=== PATIENT | female | born 1965 | race Caucasian/White ===

== ENCOUNTER 2017-02-01 04:02 | Inpatient (IN) | payer OTHER ==
--- NOTE | ~2017-02-01 | HP ---
History And Physical [facility] [id number] [place]. [address] NAME: ARI ACUNA : 63 STATUS : DIS IN PAT#: [id number] AGE: 51 ADM/REG DATE : 02/01/17 MR#: [id number] REPORT SERV DATE: 02/18/17 DICTATED BY: EZ COBOS DATE: 02/01/17 REPORT STATUS : Draft TRANSCRIBED BY: MODL DATE: 02/01/17 DATE OF ADMISSION: 02/01/2017 CHIEF COMPLAINT: Blood sugar unreadable, hyperglycemia. HISTORY OF PRESENT ILLNESS: This is a 45-year-old, obese, insulin-dependent diabetic with hypothyroidism and hyperglycemia who presents to the Emergency Room at [facility] with the above-mentioned complaint. History is obtained from the patient, her daughter, and a niece who are at bedside and reviewing data available on the [employer] system. According to available data, Mrs. Price has had a urinary tract infection about two weeks ago, which was successfully treated. Yesterday in the morning, they found her blood sugars were 400 and above, and during the course of the day, her blood sugars climbed up to the point the meter would not even read. No matter what they did, the sugar would not come down. She has an insulin pump, which they had checked, changed the lines and made sure it was working. However, blood sugars continued to rise, and finally they decided to bring her to the emergency room. Their physician had locked out the basal rate on her pump, and they were advised never to give a bolus. In the emergency room, she had a blood sugar of 652 and Hospitalist Service was asked to admit her for further evaluation and treatment. At the time of my evaluation, she denied any chest pain, palpitations, or orthopnea. She had no cough, hemoptysis, night sweats, or weight loss. She has not had any recent falls or loss of consciousness. No history of recent fevers, chills, nausea, vomiting, or diarrhea. No history of recent hematemesis, hematochezia, hematuria, or dysuria. No other history of recent travel or exposures other than those mentioned above. PAST MEDICAL HISTORY: Significant for poorly controlled diabetes mellitus with known insulin resistance on U-500 via insulin pump. She has a history of gastroparesis and neuropathy secondary to her diabetes; obesity; obstructive sleep apnea, on CPAP therapy; hypothyroidism; fibromyalgia; major depressive disorder and anxiety disorder. She has history of diverticulitis, atrial fibrillation with CHADS of 1, not on Coumadin; history of syncope with multiple admissions and workups in the past. She has a fatty liver, urinary tract infections as well. She has a PEG tube placement as well. SOCIAL HISTORY: She does not smoke, drink, or use recreational drugs. FAMILY HISTORY: Noncontributory. MEDICATIONS: At home were reviewed by me in the chart today and reordered by me. REVIEW OF SYSTEMS: As in history of present illness. All other systems were reviewed in detail and are quite unremarkable. History And Physical [address] [address] NAME: ARI ACUNA : 63 STATUS : DIS IN PAT#: [id number] AGE: 51 ADM/REG DATE : 02/01/17 MR#: [id number] REPORT SERV DATE: 02/18/17 DICTATED BY: EZ COBOS DATE: 02/01/17 REPORT STATUS : Draft TRANSCRIBED BY: ANASTASIYA DATE: 02/01/17 PHYSICAL EXAMINATION: GENERAL: This is a pleasant 45-year-old, morbidly obese female who is alert, awake, and oriented to time, place, and person. HEENT: Her head is atraumatic, normocephalic. Pupils are equal, reacting to light and accommodating. External ocular muscles are intact. Membranes are moist and pink. Sclerae are nonicteric. NECK: Supple with no jugular venous distention, lymphadenopathy, or thyromegaly. LUNGS: Clear to auscultation with no wheezes, rubs, or crackles. HEART: Sounds were regular with no murmurs, rubs, or gallops. ABDOMEN: Soft, nontender. Bowel sounds are present. EXTREMITIES: No cyanosis, clubbing, or edema. NEUROLOGIC: Grossly intact. No focal sensory or motor deficits. Higher functions appeared intact. Gait was not examined at this time. VITAL SIGNS: Her vital signs today showed a temperature of 97.8, pulse 78, respirations 17 a minute, blood pressure was 126/57, oxygen saturations were 99% breathing 2 L of oxygen via nasal cannula. LABORATORY DATA: Reviewed on the [employer] system showed a pH of 7.37, pCO2 of 41, pO2 of 78, and bicarb 23.0. This was on room air. CMP showed a sodium of 134, potassium 4.8, chloride 97, CO2 of 26, BUN was 32 with a creatinine of 1.35, which is slightly up from her baseline. Blood glucose upon arrival here was 652. Troponin was 202 today. Her lactate was 1.6 today, and CBC showed a white blood cell count of 7900, hemoglobin was 11.6, hematocrit 35.9, and platelet count was 195,000. Urinalysis showed no leukocyte esterase, nitrite was positive; there were 6 wbc's. Films of the chest x-ray were reviewed by me on the PACS today and interpreted by me. Per my interpretation, there is no significant change from her prior films. A 12-lead EKG done in the emergency room was reviewed and interpreted by me. There is normal sinus rhythm with a rate of [address]-T changes. IMPRESSION: 1. Severe hyperglycemia. 2. Poorly controlled insulin dependent diabetes mellitus. 3. Hypothyroidism. 4. Morbid obesity. 5. Obstructive sleep apnea, on CPAP therapy. 6. Gastroparesis and neuropathy. 7. Major depressive disorder and anxiety disorder. 8. History of medication noncompliance. PLAN: We will admit Mrs. Price to the Hospitalist Service to a telemetry bed for a 24-hour observation period. We will go ahead and stop her insulin pump and exchange engineer to insulin infusion per protocol. We will also bolus her with normal saline here, check her serum acetone and urine ketones as well. We will also check her A1c and her thyroid function. We will go ahead and check her chemistry, CBC, and electrolytes in the morning and replete electrolytes as needed. She will be on low molecular weight heparin for DVT prophylaxis History And Physical [address] [address] NAME: ARI ACUNA : 63 STATUS : DIS IN [facility]#: [id number] AGE: 51 ADM/REG DATE : 02/01/17 MR#: [id number] REPORT SERV DATE: 02/18/17 DICTATED BY: EZ COBOS DATE: 02/01/17 REPORT STATUS : Draft TRANSCRIBED BY: MODL DATE: 02/01/17 while here as well. We will also get nutrition consult to re-educate her on the use of her pump as well. I have discussed the above plans with the patient. Her questions were answered and she is agreeable to the above recommendations. Hospitalist Service will be following her during her stay here. LEENA Ez Cobos M.D. / [id number]
--- NOTE | ~2017-02-01 | DS ---
Discharge Summary [facility] [address] [place]. [address] NAME: ARI ACUNA : 63 STATUS : DIS IN PAT#: [id number] AGE: 51 ADM/REG DATE : 02/01/17 MR#: [id number] REPORT SERV DATE: 02/07/17 DICTATED BY: LILIA OSPINA DATE: 02/06/17 REPORT STATUS : Draft TRANSCRIBED BY: ANASTASIYA DATE: 02/06/17 ADMISSION DATE: 02/01/2017 DISCHARGE DATE: 02/06/2017 DISCHARGE DIAGNOSES: 1. Diabetes mellitus, poorly controlled, insulin dependent. 2. Gastroparesis. 3. Weakness. IMAGING: Chest x-ray, 02/01/2017. Impression: Negative AP portable chest. HOSPITAL COURSE: Please refer to history and physical dictated on 02/01/2017 for complete admission details. This patient is a 51-year-old female, who presented to [facility]'s Emergency Room with a blood glucose of 652. The patient is a known diabetic. The patient's family stated upon admission that the patient's blood glucose had been elevated for approximately 48 hours. She is a type 2 diabetic on an insulin pump. She is known insulin resistant. The patient stated at the time of admission that she was unable to control her blood sugars. The patient was noting blood sugars greater than 600. The patient was then admitted to the hospital. 1. Diabetes mellitus type 2, poorly controlled. The patient was initially taken off her insulin pump. Diabetes education was obtained. The patient was thoroughly educated as well as daughter. Questions were answered. Insulin pump was re-initiated. Blood sugar has been monitored during her stay as well as her diet. The patient did state understanding as well as daughter. We will have the patient follow up with her primary care. 2. Gastroparesis. The patient has had a PEG tube placed approximately 5 years prior to this admission. Tube feedings have continued, she has tolerated without difficulty. 3. Weakness. The patient was evaluated by Physical Therapy due to complaints of weakness. She did state that she has been wheelchair bound for greater than 12 months. She was able to work with Physical Therapy, but she did refuse nursing home versus rehab, requesting to go home. Resume choices as previously ordered by her primary care. The patient has been advised to follow up with her primary care though in five to seven days. The patient is being discharged home in hemodynamically stable condition. She will follow up with her primary care in five to seven days. She will continue her insulin pump and record readings for her primary care. DISCHARGE MEDICATIONS: 1. Aspirin 325 mg one per PEG. 2. Ibuprofen 800 mg one per PEG three times daily. 3. Gabapentin 600 mg per PEG three times daily. 4. Lopid 600 mg one per PEG twice daily. 5. Humulin R 500 per insulin pump. Discharge Summary [place] [address] [place] [address] NAME: ARI ACUNA : 63 STATUS : DIS IN PAT#: [id number] AGE: 51 ADM/REG DATE : 02/01/17 MR#: [id number] REPORT SERV DATE: 02/07/17 DICTATED BY: LILIA OSPINA DATE: 02/06/17 REPORT STATUS : Draft TRANSCRIBED BY: ANASTASIYA DATE: 02/06/17 6. Lamictal 200 mg per PEG daily. 7. Synthroid 300 mcg per PEG breakfast. 8. Cytomel 25 mcg per PEG at lunch. 9. Trileptal 300 mg per PEG twice daily. 10.Zoloft 100 mg, 150 mg per PEG daily. 11.Zocor 20 mg per PEG daily. 12.Topamax 100 mg per PEG daily. 13.Effexor 25 mg, 75 mg per PEG twice daily. 14.Oxycodone 5 mg per PEG three times daily p.r.n. for pain. 15.Proventil inhaler up to four times daily p.r.n. for shortness of breath. 16.Flexeril 5 mg, 10 mg per PEG every 8 hours p.r.n. for muscle spasms. Hold for sedation. 17.HCTZ 25 mg per PEG daily. 18.Proventil inhaler two puffs inhale up to four times daily for shortness of breath. 19.QVAR 40 mcg two puffs inhale twice daily. 20.Pyridium 200 mg per PEG p.r.n. three times daily. This discharge took less than 30 minutes. ISMAEL/ANASTASIYA Lilia Ospina NP / [id number] CC: MD David Penn M.D.
[2017-02-01 03:30] LABS: INSTRUMENT SERIAL # 8087
[2017-02-01 03:31] LABS: ALLENS TEST Pos; BE (BASE EXCESS) -2.2 MEQ/L (0 +/- 2.5); CARBOXYHEMOGLOBIN 1.6 % (0-3); DEVICE ra; HEMOBLOGIN CONTENT 10.7 G/DL (12-16); METHEMOGLOBIN 0.2 % (0-3); O2 CONTENT 14.1 VOL% (18-24); OPERATOR ID 334499; PCO2 (CO2 TENSION) 41 MMHG (35-45); PO2 (O2 TENSION) 78 MMHG (79-93); SAMPLE Arterial; pH 7.37 (7.37-7.43)
[2017-02-01 03:37] LABS: BASOPHILS 0.6 %; BASOPHILS ABSOLUTE 0.05 10/3/uL (0.0-0.16); EOSINOPHILS 6.9 %; EOSINOPHILS ABSOLUTE 0.55 10/3/uL (0.0-0.53); HEMATOCRIT 35.9 % (36.0-48.0); HEMOGLOBIN 11.6 g/dL (12.0-16.0); IMMATURE GRANULOCYTES 0.8 %; IMMATURE GRANULOCYTES ABSOLUTE 0.06 10/3/uL (0.0-0.11); LYMPHOCYTES 27.6 %; LYMPHOCYTES ABSOLUTE 2.19 10/3/uL (0.67-4.30); MEAN CORPUS HGB CONC 32.3 g/dL (32.0-36.0); MEAN CORPUSCULAR HEMOGLOB 28.4 pg (26.0-34.0); MEAN CORPUSCULAR VOLUME 87.8 fL (80-100); MEAN PLATELET VOLUME 9.8 fL (9.2-13.0); MONOCYTES 7.2 %; MONOCYTES ABSOLUTE 0.57 10/3/uL (0.21-1.20); NEUTROPHILS 56.9 %; NEUTROPHILS ABSOLUTE 4.51 10/3/uL (2.02-8.40); PLATELET COUNT 195 10/3/uL (150-400); RBC DISTRIBUTION WIDTH 16.7 % (12.0-16.0); RED CELL COUNT 4.09 10/6/uL (4.0-5.6); WHITE BLOOD CELLS 7.9 10/3/uL (4.5-10.5)
[2017-02-01 03:41] LABS: MANUAL DIFF NO %
[2017-02-01 03:54] LABS: A/G RATIO 0.9 (0.7-1.9); ALBUMIN 3.6 G/DL (3.5-5.0); BUN (BLOOD UREA NITROGEN) 32 MG/DL (6-23); CALCIUM, SERUM 8.5 MG/DL (8.5-10.4); CHLORIDE, SERUM 97 MMOL/L (96-112); CO2 (CARBON DIOXIDE) 26 MMOL/L (24-34); CREATININE 1.35 MG/DL (0.55-1.02); GFR AFRICAN AMERICAN 52 ML/MIN (>=60); GFR NON AFRICAN AMERICAN 45 ML/MIN (>=60); GLOBULIN 3.8 G/DL (2.5-4.1); POTASSIUM, SERUM 4.8 MMOL/L (3.5-5.3); SGOT(AST) 66 U/L (5-40); SGPT(ALT) 87 U/L (5-65); SODIUM, SERUM 134 MMOL/L (135-148); TOTAL PROTEIN 7.4 G/DL (6.0-8.5)
[2017-02-01 03:56] LABS: ALKALINE PHOSPHATASE 293 U/L (45-117); GLUCOSE, SERUM 652 MG/DL (60-99); TOTAL BILIRUBIN 1.2 MG/DL (0-1.2)
[~2017-02-01 04:02] MED LIST: ACETSUP650 PR; ACETUDL PO; ALEVE220 MG PEG; ARMOUR THYRO30 MG PEG; ARMOUR THYRO30 MG PO; ASA5GR PEG; ASA5GR PO; ASAB PO; ASABAYER PEG; ASABAYER PO; AT25 PEG; AT25 PO; ATARAX50B PO; ATV1 PO; BEN25 PEG; BEN25 PO; CEFTRIAXONE PO; CIP5 PEG; CIPRO PO; CLARIT10 PO; CYTO25 PEG; DURICEF PO; EDLUAR5 MG SL; EFFEX25 PEG; EFFEXXR37 PEG; EFFEXXR75 PEG; FLEX PEG; FLEX PO; FLEXERIL5 MG PEG; FLUCON150 PEG; Flexeril PO; GLUCERNA; HCTZ12.5 PO; HCTZ25B PEG; HCTZ25B PO; HUMULIN-R CONCEN3 ML SC; HUMULIN500CONC; HYDROCHLOROT12.5 MG PO; HYDROCHLOROT25 MG PEG; HYDROCHLOROT25 MG PO; HYDROCODONE; IBU800 PEG; IBU800 PO; IMITREX100 MG PEG; IMITREX100 MG PO; IMITREX50 PO; INSNOVN SC; INSNOVR SC; K500 PO; KCL20UDL PO; LAMICTAL25 PEG; LANTUS FOR SC; LANTUS INSULIN; LANTUS SC; LEVOTHYROXIN175 MCG PEG; LIPITOR20 PEG; LOPID6 PEG; LOPID6 PO; LORT7 PEG; LORT7 PO; MAGOX4 PO; MARINOL10 MG PO; MAXALT10 MG PO; MIRALAXPKT PO; NATURA2 OP; NATURA2 OPH; NEUR300 PEG; NEUR300 PO; NEUR600 PEG; NEUR600 PO; NEXIUM40 MG PEG; NEXIUM40 MG PO; NEXIUM40 PO; NORCO1 TA2 PEG; NORCO1 TA2 PO; NOVLOGPUMP SC; NOVOLOG INSULIN; NOVOLOG SC; NOVOPEN SC; OXYCOD PEG; PR25 PEG; PR25 PO; PRIN5 PEG; PROTONIX PEG; PROVENTSOL INH; PROVHFA INH; QVAR40 MC1 INH; REG PO; REGL PO; RELPAX PO; RELPAX40 MG PEG; RELPAX40 MG PO; REMERON30 MG PEG; SLEEP MED; SYN.05 PO; SYN075 PO; SYN125 PEG; SYN125 PO; SYN88 PO; SYNTHROID175 MCG PEG; SYNTHROID200 MCG PEG; SYNTHROID300 MCG PEG; T PEG; TRAMADOL PO; TRAZ100 PEG; TRAZ50 PEG; TRAZ50 PO; ULTRAM50 PEG; ULTRAM50 PO; VIB100 PO; VIST25 PO; VITAMIN D31000 UNIT PO; X5 PEG; X5 PO; ZETIA PO; ZOL100 PEG; ZOL100 PO; ZOL50 PO; [UNRECOGNIZED DRUG - OTHER]; [UNRECOGNIZED DRUG - OTHER]; [UNRECOGNIZED DRUG - REMARK]; [UNRECOGNIZED DRUG - REMARK]
[2017-02-01 04:39] LABS: ASCORBIC ACID (UR NOT ORDER) NEG (NEG); BILIRUBIN, URINE NEGATIVE (NEG); ER URINALYSIS TAT 0 Hrs 08 Mins; KETONE, URINE NEGATIVE (NEG); LEUKOCYTE ESTERASE(NOT OR NEG (NEG); NITRITE (URINE) POS (NEG); WBC (NOT ORDERED) (RFLEX) 6 (0-5)
[2017-02-01] MEDS ORDERED: IBU800 PO (04:47)
[2017-02-01] MEDS ORDERED: TOPAMAX100 PEG (04:48)
[2017-02-01] MEDS ORDERED: TRILEP300 PEG (04:49)
[2017-02-01] MEDS ORDERED: PYR200 PEG (04:50)
[2017-02-01] MEDS ORDERED: ZOCOR20 PEG (04:52)
[2017-02-01] MEDS ORDERED: NAP500 PEG (04:57)
[2017-02-01] MEDS ORDERED: ZOL100 PEG (04:58)
[2017-02-01] MEDS ORDERED: LAMICTAL200 MG PEG (04:59)
[2017-02-01 10:36] LABS: ACETONE NEG
[2017-02-02 04:04] LABS: BASOPHILS 0.4 %; BASOPHILS ABSOLUTE 0.03 10/3/uL (0.0-0.16); EOSINOPHILS 7.4 %; EOSINOPHILS ABSOLUTE 0.51 10/3/uL (0.0-0.53); HEMATOCRIT 30.5 % (36.0-48.0); HEMOGLOBIN 9.8 g/dL (12.0-16.0); IMMATURE GRANULOCYTES 0.7 %; IMMATURE GRANULOCYTES ABSOLUTE 0.05 10/3/uL (0.0-0.11); LYMPHOCYTES ABSOLUTE 2.34 10/3/uL (0.67-4.30); MANUAL DIFF NO %; MEAN CORPUS HGB CONC 32.1 g/dL (32.0-36.0); MEAN CORPUSCULAR HEMOGLOB 28.2 pg (26.0-34.0); MEAN CORPUSCULAR VOLUME 87.6 fL (80-100); MEAN PLATELET VOLUME 9.5 fL (9.2-13.0); MONOCYTES 7.7 %; MONOCYTES ABSOLUTE 0.53 10/3/uL (0.21-1.20); NEUTROPHILS 49.8 %; NEUTROPHILS ABSOLUTE 3.43 10/3/uL (2.02-8.40); PLATELET COUNT 163 10/3/uL (150-400); RBC DISTRIBUTION WIDTH 16.5 % (12.0-16.0); RED CELL COUNT 3.48 10/6/uL (4.0-5.6); WHITE BLOOD CELLS 6.9 10/3/uL (4.5-10.5)
[2017-02-02 04:17] LABS: CALCIUM, SERUM 8.1 MG/DL (8.5-10.4); CHLORIDE, SERUM 109 MMOL/L (96-112); CO2 (CARBON DIOXIDE) 24 MMOL/L (24-34); CREATININE 0.99 MG/DL (0.55-1.02); GFR AFRICAN AMERICAN 76 ML/MIN (>=60); GFR NON AFRICAN AMERICAN 66 ML/MIN (>=60)
[2017-02-02 04:18] LABS: BUN (BLOOD UREA NITROGEN) 17 MG/DL (6-23); GLUCOSE, SERUM 338 MG/DL (60-99); PHOSPHORUS, SERUM 2.4 MG/DL (2.5-4.5); POTASSIUM, SERUM 3.8 MMOL/L (3.5-5.3); SODIUM, SERUM 142 MMOL/L (135-148)
[2017-02-03 06:22] LABS: CALCIUM, SERUM 7.8 MG/DL (8.5-10.4); CHLORIDE, SERUM 112 MMOL/L (96-112); CO2 (CARBON DIOXIDE) 23 MMOL/L (24-34); CREATININE 0.88 MG/DL (0.55-1.02); GFR AFRICAN AMERICAN 88 ML/MIN (>=60); GFR NON AFRICAN AMERICAN 76 ML/MIN (>=60); POTASSIUM, SERUM 4.4 MMOL/L (3.5-5.3); SODIUM, SERUM 143 MMOL/L (135-148)
[2017-02-03 06:24] LABS: BUN (BLOOD UREA NITROGEN) 10 MG/DL (6-23); GLUCOSE, SERUM 191 MG/DL (60-99)
[2017-05-27] MEDS ORDERED: CYTO25 PEG (23:41)
[2017-05-27] MEDS ORDERED: LEVOTHYROXIN50 MCG PEG (23:41)
[2017-05-27] MEDS ORDERED: ZOL50 PO (23:41)
[2017-05-27] MEDS ORDERED: ASABAYER PEG (23:42)
[2017-05-27] MEDS ORDERED: TOPAMAX50 MG PEG (23:42)
[2017-05-27] MEDS ORDERED: REMERON30 MG PEG (23:42)
[2017-05-27] MEDS ORDERED: TRILEP300 PEG (23:43)
[2017-05-27] MEDS ORDERED: LAMICTAL200 MG PEG (23:43)
[2017-05-27] MEDS ORDERED: TRILEPTAL600 MG PO (23:43)
[2017-05-27] MEDS ORDERED: NEUR600 PO (23:43)
[2017-05-27] MEDS ORDERED: IBU800 PEG (23:44)
[2017-05-27] MEDS ORDERED: HUMULIN-R CONCEN3 ML SC (23:44)
[2017-05-27] MEDS ORDERED: ALBUTEROL0.083 % INH (23:45)
[2017-05-27] MEDS ORDERED: BREO ELLIPTA INH (23:45)
[2017-05-31] MEDS ORDERED: LAMICTAL10 PO (12:50)
[2017-05-31] MEDS ORDERED: TRILEP150 PO (12:54)
[2017-05-31] MEDS ORDERED: LEVEMIR SC (13:08)
[2017-07-24] MEDS ORDERED: METHOC500B PO (11:53)
[2017-07-24] MEDS ORDERED: PCET PO (11:54)
[2017-07-24] MEDS ORDERED: TOPAMAX50 MG PO (11:55)
[2017-07-24] MEDS ORDERED: EPIPEN0.3 IM (11:56)
[2017-07-24] MEDS ORDERED: BREO ELLIPTA 21 EACH INH (11:56)
[2017-07-24] MEDS ORDERED: NASACORTAQ NAS (11:57)
[2017-07-24] MEDS ORDERED: ALLEGRA180 PO ×2 (11:57→11:58)
[2017-07-24] MEDS ORDERED: PROVHFA INH (11:58)
[2017-07-24] MEDS ORDERED: HUMULIN500CONC (11:58)
[2017-07-24] MEDS ORDERED: ALBUTEROL0.083 % INH (11:59)
[2017-07-24] MEDS ORDERED: NEUR300 PO (11:59)
[2017-07-24] MEDS ORDERED: NOVOLOG SC (11:59)
[2017-07-24] MEDS ORDERED: IMITREX100 MG PO (12:00)
[2017-07-24] MEDS ORDERED: EFFEX25 PO (12:00)
[2017-07-24] MEDS ORDERED: SPIRIVA (12:01)
[2017-07-24] MEDS ORDERED: REMERON30 MG PO (12:01)
[2017-07-24] MEDS ORDERED: TRILEP300 PO (12:02)
[2017-07-24] MEDS ORDERED: [UNRECOGNIZED DRUG - CODE] (12:03)
[2017-07-24] MEDS ORDERED: SINGULAIR1 PO (12:04)
[2017-07-24] MEDS ORDERED: LIOR10 PO (12:05)
[2017-07-24] MEDS ORDERED: NORCO1 TA1 PO (12:06)
[2017-07-24] MEDS ORDERED: NAP500 PO (12:06)
[2017-07-24] MEDS ORDERED: ZOL100 PO (12:08)
[2017-07-25] MEDS ORDERED: NAP500 PO (13:27)
[2017-07-25] MEDS ORDERED: HCTZ25B PO (13:28)
[2017-07-25] MEDS ORDERED: NEUR300 PO (13:30)
[2017-07-25] MEDS ORDERED: ATARAX50B PO ×2 (13:36→13:37)
[2017-07-25] MEDS ORDERED: LAMICTAL200 MG PO (13:39)
[2017-07-25] MEDS ORDERED: TRILEP300 PO ×2 (13:39→13:40)
[2017-07-25] MEDS ORDERED: SPIRIVA RESPIMAT INH (13:41)
[2017-07-25] MEDS ORDERED: EFFEXXR75 PO (13:42)
[2017-07-27] MEDS ORDERED: ENULOSE PO (12:58)
[2017-07-27] MEDS ORDERED: LAMICTAL10 PO (13:38)
[2017-07-27] MEDS ORDERED: TRILEP300 PO (13:39)
[2017-07-27] MEDS ORDERED: PR25 PEG (13:41)
[2017-07-27] MEDS ORDERED: SENTAB PEG (13:43)
[2017-07-27] MEDS ORDERED: TOPAMAX50 MG PO (13:49)
[2017-07-27] MEDS ORDERED: CONSTULOSE PO (13:56)
== END 2017-02-06 17:17 | disposition home or self-care (01) | DRG 74 ==
LOC: ER 04:02 → 4SO 06:06
PROVIDERS: Emergency Medicine; Internal Medicine; Internal Medicine Pulmonary Disease
DX: E11.43 Type 2 diabetes mellitus with diabetic autonomic (poly)neuropathy (principal); E11.65 Type 2 diabetes mellitus with hyperglycemia; K31.84 Gastroparesis; Z79.4 Long term (current) use of insulin; Z96.41 Presence of insulin pump (external) (internal); F32.9 Major depressive disorder, single episode, unspecified; F41.9 Anxiety disorder, unspecified; Z93.1 Gastrostomy status
CPT/HCPCS: 36600; 71010; 80048; 80053; 81001; 82009; 82805; 82962; 83036; 83605; 83690; 83735; 84100; 84443; 85025; 87040; 93005; 94640; 96374; 97162-GP; 97530-GP; 99285; A9270-GY; G8978-CL-GP; G8979-CL-GP; J2405

== ENCOUNTER 2017-03-06 02:44 | Emergency (ER) | payer OTHER ==
[~2017-03-06 02:44] MED LIST changes: +LAMICTAL200 MG PEG; +NAP500 PEG; +PYR200 PEG; +TOPAMAX100 PEG; +TRILEP300 PEG; +ZOCOR20 PEG
[2017-05-27] MEDS ORDERED: CYTO25 PEG (23:41)
[2017-05-27] MEDS ORDERED: ZOL50 PO (23:41)
[2017-05-27] MEDS ORDERED: LEVOTHYROXIN50 MCG PEG (23:41)
[2017-05-27] MEDS ORDERED: REMERON30 MG PEG (23:42)
[2017-05-27] MEDS ORDERED: TOPAMAX50 MG PEG (23:42)
[2017-05-27] MEDS ORDERED: ASABAYER PEG (23:42)
[2017-05-27] MEDS ORDERED: TRILEPTAL600 MG PO (23:43)
[2017-05-27] MEDS ORDERED: LAMICTAL200 MG PEG (23:43)
[2017-05-27] MEDS ORDERED: TRILEP300 PEG (23:43)
[2017-05-27] MEDS ORDERED: NEUR600 PO (23:43)
[2017-05-27] MEDS ORDERED: IBU800 PEG (23:44)
[2017-05-27] MEDS ORDERED: HUMULIN-R CONCEN3 ML SC (23:44)
[2017-05-27] MEDS ORDERED: BREO ELLIPTA INH (23:45)
[2017-05-27] MEDS ORDERED: ALBUTEROL0.083 % INH (23:45)
[2017-05-31] MEDS ORDERED: LAMICTAL10 PO (12:50)
[2017-05-31] MEDS ORDERED: TRILEP150 PO (12:54)
[2017-05-31] MEDS ORDERED: LEVEMIR SC (13:08)
[2017-07-24] MEDS ORDERED: METHOC500B PO (11:53)
[2017-07-24] MEDS ORDERED: PCET PO (11:54)
[2017-07-24] MEDS ORDERED: TOPAMAX50 MG PO (11:55)
[2017-07-24] MEDS ORDERED: BREO ELLIPTA 21 EACH INH (11:56)
[2017-07-24] MEDS ORDERED: EPIPEN0.3 IM (11:56)
[2017-07-24] MEDS ORDERED: ALLEGRA180 PO ×2 (11:57→11:58)
[2017-07-24] MEDS ORDERED: NASACORTAQ NAS (11:57)
[2017-07-24] MEDS ORDERED: HUMULIN500CONC (11:58)
[2017-07-24] MEDS ORDERED: PROVHFA INH (11:58)
[2017-07-24] MEDS ORDERED: NEUR300 PO (11:59)
[2017-07-24] MEDS ORDERED: ALBUTEROL0.083 % INH (11:59)
[2017-07-24] MEDS ORDERED: NOVOLOG SC (11:59)
[2017-07-24] MEDS ORDERED: EFFEX25 PO (12:00)
[2017-07-24] MEDS ORDERED: IMITREX100 MG PO (12:00)
[2017-07-24] MEDS ORDERED: REMERON30 MG PO (12:01)
[2017-07-24] MEDS ORDERED: SPIRIVA (12:01)
[2017-07-24] MEDS ORDERED: TRILEP300 PO (12:02)
[2017-07-24] MEDS ORDERED: [UNRECOGNIZED DRUG - CODE] (12:03)
[2017-07-24] MEDS ORDERED: SINGULAIR1 PO (12:04)
[2017-07-24] MEDS ORDERED: LIOR10 PO (12:05)
[2017-07-24] MEDS ORDERED: NORCO1 TA1 PO (12:06)
[2017-07-24] MEDS ORDERED: NAP500 PO (12:06)
[2017-07-24] MEDS ORDERED: ZOL100 PO (12:08)
[2017-07-25] MEDS ORDERED: NAP500 PO (13:27)
[2017-07-25] MEDS ORDERED: HCTZ25B PO (13:28)
[2017-07-25] MEDS ORDERED: NEUR300 PO (13:30)
[2017-07-25] MEDS ORDERED: ATARAX50B PO ×2 (13:36→13:37)
[2017-07-25] MEDS ORDERED: TRILEP300 PO ×2 (13:39→13:40)
[2017-07-25] MEDS ORDERED: LAMICTAL200 MG PO (13:39)
[2017-07-25] MEDS ORDERED: SPIRIVA RESPIMAT INH (13:41)
[2017-07-25] MEDS ORDERED: EFFEXXR75 PO (13:42)
[2017-07-27] MEDS ORDERED: ENULOSE PO (12:58)
[2017-07-27] MEDS ORDERED: LAMICTAL10 PO (13:38)
[2017-07-27] MEDS ORDERED: TRILEP300 PO (13:39)
[2017-07-27] MEDS ORDERED: PR25 PEG (13:41)
[2017-07-27] MEDS ORDERED: SENTAB PEG (13:43)
[2017-07-27] MEDS ORDERED: TOPAMAX50 MG PO (13:49)
[2017-07-27] MEDS ORDERED: CONSTULOSE PO (13:56)
== END 2017-03-06 04:30 | disposition home or self-care (01) ==
LOC: ER 02:44
DX: Z43.1 Encounter for attention to gastrostomy (principal); E11.43 Type 2 diabetes mellitus with diabetic autonomic (poly)neuropathy; K31.84 Gastroparesis; F32.9 Major depressive disorder, single episode, unspecified; F41.9 Anxiety disorder, unspecified; I48.91 Unspecified atrial fibrillation; Z90.710 Acquired absence of both cervix and uterus; Z90.49 Acquired absence of other specified parts of digestive tract; Z88.0 Allergy status to penicillin; Z88.8 Allergy status to other drugs, medicaments and biological substances; Z79.899 Other long term (current) drug therapy; Z79.4 Long term (current) use of insulin; Z79.82 Long term (current) use of aspirin
CPT/HCPCS: 49465; 99283; A9270-GY

== ENCOUNTER 2017-03-09 15:15 | Day surgery (SDC) | payer OTHER ==
[2017-05-27] MEDS ORDERED: LEVOTHYROXIN50 MCG PEG (23:41)
[2017-05-27] MEDS ORDERED: CYTO25 PEG (23:41)
[2017-05-27] MEDS ORDERED: ZOL50 PO (23:41)
[2017-05-27] MEDS ORDERED: ASABAYER PEG (23:42)
[2017-05-27] MEDS ORDERED: TOPAMAX50 MG PEG (23:42)
[2017-05-27] MEDS ORDERED: REMERON30 MG PEG (23:42)
[2017-05-27] MEDS ORDERED: NEUR600 PO (23:43)
[2017-05-27] MEDS ORDERED: LAMICTAL200 MG PEG (23:43)
[2017-05-27] MEDS ORDERED: TRILEP300 PEG (23:43)
[2017-05-27] MEDS ORDERED: TRILEPTAL600 MG PO (23:43)
[2017-05-27] MEDS ORDERED: HUMULIN-R CONCEN3 ML SC (23:44)
[2017-05-27] MEDS ORDERED: IBU800 PEG (23:44)
[2017-05-27] MEDS ORDERED: BREO ELLIPTA INH (23:45)
[2017-05-27] MEDS ORDERED: ALBUTEROL0.083 % INH (23:45)
[2017-05-31] MEDS ORDERED: LAMICTAL10 PO (12:50)
[2017-05-31] MEDS ORDERED: TRILEP150 PO (12:54)
[2017-05-31] MEDS ORDERED: LEVEMIR SC (13:08)
[2017-07-24] MEDS ORDERED: METHOC500B PO (11:53)
[2017-07-24] MEDS ORDERED: PCET PO (11:54)
[2017-07-24] MEDS ORDERED: TOPAMAX50 MG PO (11:55)
[2017-07-24] MEDS ORDERED: EPIPEN0.3 IM (11:56)
[2017-07-24] MEDS ORDERED: BREO ELLIPTA 21 EACH INH (11:56)
[2017-07-24] MEDS ORDERED: ALLEGRA180 PO ×2 (11:57→11:58)
[2017-07-24] MEDS ORDERED: NASACORTAQ NAS (11:57)
[2017-07-24] MEDS ORDERED: PROVHFA INH (11:58)
[2017-07-24] MEDS ORDERED: HUMULIN500CONC (11:58)
[2017-07-24] MEDS ORDERED: NEUR300 PO (11:59)
[2017-07-24] MEDS ORDERED: ALBUTEROL0.083 % INH (11:59)
[2017-07-24] MEDS ORDERED: NOVOLOG SC (11:59)
[2017-07-24] MEDS ORDERED: IMITREX100 MG PO (12:00)
[2017-07-24] MEDS ORDERED: EFFEX25 PO (12:00)
[2017-07-24] MEDS ORDERED: REMERON30 MG PO (12:01)
[2017-07-24] MEDS ORDERED: SPIRIVA (12:01)
[2017-07-24] MEDS ORDERED: TRILEP300 PO (12:02)
[2017-07-24] MEDS ORDERED: [UNRECOGNIZED DRUG - CODE] (12:03)
[2017-07-24] MEDS ORDERED: SINGULAIR1 PO (12:04)
[2017-07-24] MEDS ORDERED: LIOR10 PO (12:05)
[2017-07-24] MEDS ORDERED: NAP500 PO (12:06)
[2017-07-24] MEDS ORDERED: NORCO1 TA1 PO (12:06)
[2017-07-24] MEDS ORDERED: ZOL100 PO (12:08)
[2017-07-25] MEDS ORDERED: NAP500 PO (13:27)
[2017-07-25] MEDS ORDERED: HCTZ25B PO (13:28)
[2017-07-25] MEDS ORDERED: NEUR300 PO (13:30)
[2017-07-25] MEDS ORDERED: ATARAX50B PO ×2 (13:36→13:37)
[2017-07-25] MEDS ORDERED: LAMICTAL200 MG PO (13:39)
[2017-07-25] MEDS ORDERED: TRILEP300 PO ×2 (13:39→13:40)
[2017-07-25] MEDS ORDERED: SPIRIVA RESPIMAT INH (13:41)
[2017-07-25] MEDS ORDERED: EFFEXXR75 PO (13:42)
[2017-07-27] MEDS ORDERED: ENULOSE PO (12:58)
[2017-07-27] MEDS ORDERED: LAMICTAL10 PO (13:38)
[2017-07-27] MEDS ORDERED: TRILEP300 PO (13:39)
[2017-07-27] MEDS ORDERED: PR25 PEG (13:41)
[2017-07-27] MEDS ORDERED: SENTAB PEG (13:43)
[2017-07-27] MEDS ORDERED: TOPAMAX50 MG PO (13:49)
[2017-07-27] MEDS ORDERED: CONSTULOSE PO (13:56)
== END 2017-03-09 23:59 | disposition home health service (06) ==
LOC: DMU 15:15
PROVIDERS: Internal Medicine Gastroenterology
PROC: 0D20XUZ Change Feeding Device in Upper Intestinal Tract, External Approach (ICD-10-PCS; principal; 2017-03-09 15:00)
DX: K94.23 Gastrostomy malfunction (principal); K31.84 Gastroparesis; K29.70 Gastritis, unspecified, without bleeding; K21.9 Gastro-esophageal reflux disease without esophagitis; K64.8 Other hemorrhoids; E10.40 Type 1 diabetes mellitus with diabetic neuropathy, unspecified; E10.43 Type 1 diabetes mellitus with diabetic autonomic (poly)neuropathy; E03.9 Hypothyroidism, unspecified; E46 Unspecified protein-calorie malnutrition; J45.909 Unspecified asthma, uncomplicated; F32.9 Major depressive disorder, single episode, unspecified; R01.0 Benign and innocent cardiac murmurs; Z86.010 Personal history of colon polyps; Z83.3 Family history of diabetes mellitus; Z83.79 Family history of other diseases of the digestive system; Z83.49 Family history of other endocrine, nutritional and metabolic diseases; Z80.8 Family history of malignant neoplasm of other organs or systems; Z79.4 Long term (current) use of insulin; Z79.891 Long term (current) use of opiate analgesic; Z79.899 Other long term (current) drug therapy; Z98.890 Other specified postprocedural states; Z90.710 Acquired absence of both cervix and uterus; Z90.49 Acquired absence of other specified parts of digestive tract
CPT/HCPCS: 49465

== ENCOUNTER 2017-04-09 14:02 | Emergency (ER) | payer OTHER ==
[2017-05-27] MEDS ORDERED: CYTO25 PEG (23:41)
[2017-05-27] MEDS ORDERED: LEVOTHYROXIN50 MCG PEG (23:41)
[2017-05-27] MEDS ORDERED: ZOL50 PO (23:41)
[2017-05-27] MEDS ORDERED: REMERON30 MG PEG (23:42)
[2017-05-27] MEDS ORDERED: TOPAMAX50 MG PEG (23:42)
[2017-05-27] MEDS ORDERED: ASABAYER PEG (23:42)
[2017-05-27] MEDS ORDERED: NEUR600 PO (23:43)
[2017-05-27] MEDS ORDERED: TRILEP300 PEG (23:43)
[2017-05-27] MEDS ORDERED: TRILEPTAL600 MG PO (23:43)
[2017-05-27] MEDS ORDERED: LAMICTAL200 MG PEG (23:43)
[2017-05-27] MEDS ORDERED: HUMULIN-R CONCEN3 ML SC (23:44)
[2017-05-27] MEDS ORDERED: IBU800 PEG (23:44)
[2017-05-27] MEDS ORDERED: ALBUTEROL0.083 % INH (23:45)
[2017-05-27] MEDS ORDERED: BREO ELLIPTA INH (23:45)
[2017-05-31] MEDS ORDERED: LAMICTAL10 PO (12:50)
[2017-05-31] MEDS ORDERED: TRILEP150 PO (12:54)
[2017-05-31] MEDS ORDERED: LEVEMIR SC (13:08)
[2017-07-24] MEDS ORDERED: METHOC500B PO (11:53)
[2017-07-24] MEDS ORDERED: PCET PO (11:54)
[2017-07-24] MEDS ORDERED: TOPAMAX50 MG PO (11:55)
[2017-07-24] MEDS ORDERED: BREO ELLIPTA 21 EACH INH (11:56)
[2017-07-24] MEDS ORDERED: EPIPEN0.3 IM (11:56)
[2017-07-24] MEDS ORDERED: NASACORTAQ NAS (11:57)
[2017-07-24] MEDS ORDERED: ALLEGRA180 PO ×2 (11:57→11:58)
[2017-07-24] MEDS ORDERED: PROVHFA INH (11:58)
[2017-07-24] MEDS ORDERED: HUMULIN500CONC (11:58)
[2017-07-24] MEDS ORDERED: NOVOLOG SC (11:59)
[2017-07-24] MEDS ORDERED: NEUR300 PO (11:59)
[2017-07-24] MEDS ORDERED: ALBUTEROL0.083 % INH (11:59)
[2017-07-24] MEDS ORDERED: EFFEX25 PO (12:00)
[2017-07-24] MEDS ORDERED: IMITREX100 MG PO (12:00)
[2017-07-24] MEDS ORDERED: REMERON30 MG PO (12:01)
[2017-07-24] MEDS ORDERED: SPIRIVA (12:01)
[2017-07-24] MEDS ORDERED: TRILEP300 PO (12:02)
[2017-07-24] MEDS ORDERED: [UNRECOGNIZED DRUG - CODE] (12:03)
[2017-07-24] MEDS ORDERED: SINGULAIR1 PO (12:04)
[2017-07-24] MEDS ORDERED: LIOR10 PO (12:05)
[2017-07-24] MEDS ORDERED: NAP500 PO (12:06)
[2017-07-24] MEDS ORDERED: NORCO1 TA1 PO (12:06)
[2017-07-24] MEDS ORDERED: ZOL100 PO (12:08)
[2017-07-25] MEDS ORDERED: NAP500 PO (13:27)
[2017-07-25] MEDS ORDERED: HCTZ25B PO (13:28)
[2017-07-25] MEDS ORDERED: NEUR300 PO (13:30)
[2017-07-25] MEDS ORDERED: ATARAX50B PO ×2 (13:36→13:37)
[2017-07-25] MEDS ORDERED: LAMICTAL200 MG PO (13:39)
[2017-07-25] MEDS ORDERED: TRILEP300 PO ×2 (13:39→13:40)
[2017-07-25] MEDS ORDERED: SPIRIVA RESPIMAT INH (13:41)
[2017-07-25] MEDS ORDERED: EFFEXXR75 PO (13:42)
[2017-07-27] MEDS ORDERED: ENULOSE PO (12:58)
[2017-07-27] MEDS ORDERED: LAMICTAL10 PO (13:38)
[2017-07-27] MEDS ORDERED: TRILEP300 PO (13:39)
[2017-07-27] MEDS ORDERED: PR25 PEG (13:41)
[2017-07-27] MEDS ORDERED: SENTAB PEG (13:43)
[2017-07-27] MEDS ORDERED: TOPAMAX50 MG PO (13:49)
[2017-07-27] MEDS ORDERED: CONSTULOSE PO (13:56)
== END 2017-04-09 15:52 | disposition home or self-care (01) ==
LOC: ER 14:02
DX: R51 Headache (principal); R11.2 Nausea with vomiting, unspecified; K21.9 Gastro-esophageal reflux disease without esophagitis; F32.9 Major depressive disorder, single episode, unspecified; F41.9 Anxiety disorder, unspecified; E11.9 Type 2 diabetes mellitus without complications; E07.9 Disorder of thyroid, unspecified; Z90.49 Acquired absence of other specified parts of digestive tract; Z90.710 Acquired absence of both cervix and uterus; Z88.0 Allergy status to penicillin; Z91.038 Other insect allergy status; Z88.8 Allergy status to other drugs, medicaments and biological substances; Z79.4 Long term (current) use of insulin; Z79.82 Long term (current) use of aspirin; Z79.899 Other long term (current) drug therapy
CPT/HCPCS: 70450; 82962; 96372; 99284; J1200; J1885; J2765

== ENCOUNTER → 2017-04-13 05:05 | Emergency (ER) | payer OTHER ==
[~2017-04-13 05:05] MED LIST changes: +ALBUTEROL0.083 % INH; +ALLEGRA180 PO; +BREO ELLIPTA 21 EACH INH; +BREO ELLIPTA INH; +CONSTULOSE PO; +EFFEX25 PO; +EFFEXXR75 PO; +ENULOSE PO; +EPIPEN0.3 IM; +LAMICTAL10 PO; +LAMICTAL200 MG PO; +LEVEMIR SC; +LEVOTHYROXIN50 MCG PEG; +LIOR10 PO; +METHOC500B PO; +NAP500 PO; +NASACORTAQ NAS; +NORCO1 TA1 PO; +PCET PO; +REMERON30 MG PO; +SENTAB PEG; +SINGULAIR1 PO; +SPIRIVA; +SPIRIVA RESPIMAT INH; +TOPAMAX50 MG PEG; +TOPAMAX50 MG PO; +TRILEP150 PO; +TRILEP300 PO; +TRILEPTAL600 MG PO; +[UNRECOGNIZED DRUG - CODE]
== END | disposition home or self-care (01) ==
LOC: ER 05:05
DX: Z43.1 Encounter for attention to gastrostomy (principal); K21.9 Gastro-esophageal reflux disease without esophagitis; E11.40 Type 2 diabetes mellitus with diabetic neuropathy, unspecified; I48.91 Unspecified atrial fibrillation; F32.9 Major depressive disorder, single episode, unspecified; G47.30 Sleep apnea, unspecified; F41.9 Anxiety disorder, unspecified; Z88.0 Allergy status to penicillin; Z88.8 Allergy status to other drugs, medicaments and biological substances; Z79.4 Long term (current) use of insulin; Z79.899 Other long term (current) drug therapy; Z79.82 Long term (current) use of aspirin
CPT/HCPCS: 99282